=== PATIENT | female | born 1985 | race Caucasian/White ===

== ENCOUNTER 2022-08-01 09:28 | Outpatient (CLI) | payer BC, SELFPAY ==
--- NOTE | 2022-08-01 09:15 | CRLHL7_ITS ---
For Patients: As a result of the Century Cures Act, medical imaging exams and procedure reports are released immediately into your electronic medical record. You may view this report before your referring provider. If you have questions, please contact your health care provider. CLINICAL HISTORY: Lost IUD strings TECHNIQUE: 2D frye scale and color Doppler images were acquired of the pelvis using a transvaginal approach. FINDINGS: On transvaginal imaging, the myometrium has a normal uniform echotexture. Within the lower uterine segment there is a prominent cysts are in section scar with multiple simple and complex nabothian cysts. The IUD strings are associated with the scar tissue. IUD is in good position within the uterine fundal endometrium. The left ovary measures 2.0 x 1.6 x 2.1 cm in size and the right ovary measures 4.0 x 1.4 x 2.0 cm. The ovaries demonstrate normal arterial and venous blood flow on color Doppler analysis. There are no suspicious fluid collections within the cul-de-sac. IMPRESSION: IUD in good position within the endometrial canal. IUD strings associated with the scar tissue. Dictated by Stephen Nicole MD @ 08/01/2022 10:57:58 AM (Electronically Signed)
== END 2022-08-01 09:29 | disposition home or self-care (01) ==
LOC: US 09:29
PROVIDERS: PCP Internal Medicine; Visit Provider Physician Assistant
DX: T83.32XA Displacement of intrauterine contraceptive device, initial encounter (principal); Z97.5 Presence of (intrauterine) contraceptive device
CPT/HCPCS: 76830

== ENCOUNTER 2022-08-08 11:55 | Day surgery (SDC) | payer BC, SELFPAY ==
[2022-08-08 12:19] VITALS: BMI 28.1
[2022-08-08 12:19] LABS: Ur HCG Qualitative* Negative (Negative)
[2022-08-08 12:22] VITALS: BP 100/63; PULSE 88; RESP 20; TEMP 36.8; O2SAT 97
[2022-08-08 12:25] LABS: Hemoglobin* 15.5 gm/dL (12.0-16.0)
[2022-08-08] MEDS: LACTATED RINGERS 1000 ML 1,000 ML 100 ML IV (12:30)
[2022-08-08] MEDS: ETHYL CHLORIDE 1 APPLICATION 1 APPLIC TOPICAL (12:31)
--- NOTE | 2022-08-08 12:38 | W.PM.GYNPROC ---
Procedure Note Time Seen by Provider: 12:39 Date Seen: 08/08/22 Procedure Details: Preoperative diagnosis: 37-year-old with , retained IUD with lost strings. Unsuccessful attempt at in office hysteroscopic removal 2 days ago. Postoperative diagnosis: Same Procedure: Hysteroscopic IUD removal Anesthesia: Monitored anesthesia care with paracervical block Specimen removed: Intact IUD Findings: Exam under anesthesia: Cervix palpates normal. Uterus soft, mobile, anteverted without nodularity/masses. Adnexa were without fullness or nodularity. On hysteroscopy: IUD strings were curled up along the long arm of IUD and tucked into anterior lower uterine segment. Procedure in detail: Patient was taken to the operating room with IV running. She was positioned in dorsal lithotomy position with her legs fully supported in Yellofin stirrups. Monitored anesthesia care was administered. She was prepped and draped in the usual sterile fashion. Exam under anesthesia was performed for the above-noted findings. Speculum was inserted. Cervix visualized and grasped along the anterior lip with a single-tooth tenaculum. 4 cc of 0.5% Marcaine was used for paracervical block. Cervix was serially dilated to accommodate the TRUCLEAR hysteroscope - size 6 [place] Teresita dilator. This was assembled with saline inflow and outflow in place. The line was flushed of bubbles. The hysteroscope was advanced through the cervix into the endometrial cavity for the above noted findings. The tissue morcellator was then inserted through the operating channel. Window lock was performed. Under direct visualization, hysteroscopic grasper was used to grasp that IUD strings which were curled up along the long arm of the IUD and near the scar and gentle traction was used to remove the IUD in its entirety from the uterine cavity. IUD exam and post procedurely and noted to be completely intact. The hysteroscope and grasper were then removed from the uterus. Tenaculum was removed from the anterior lip of cervix. Hemostasis was achieved with silver nitrate at both tenaculum site. Patient tolerated procedure well. She was taken to recovery area in stable condition. EBL: 5 cc Urine output: 20 cc Fluid deficit: 10 cc
[2022-08-08] MEDS: BUPIVACAINE 0.5% 30 ML 4 ML INJECTION (13:10)
[2022-08-08] MEDS: SILVER NITRATE APPLICATOR 1 EACH STICK..EA. 2 EACH TOPICAL (13:11)
[2022-08-08 13:31] VITALS: BP 100/63; PULSE 86; RESP 20; TEMP 36.3; O2SAT 98
--- NOTE | 2022-08-08 13:31 | W.ANESCHARGE ---
Anesthesia Charges Start Date/Time Anesthesia Start Date: 08/08/22 Anesthesia Start Time: 12:45 Stop Date/Time Anesthesia Stop Date: 08/08/22 Anesthesia Stop Time: 13:22 Summary Emergency: No
[2022-08-08 13:40] VITALS: BP 105/75; PULSE 85; RESP 20; O2SAT 100
--- NOTE | 2022-08-08 13:56 | W.ANESCHARGE ---
Anesthesia Charges Start Date/Time Anesthesia Start Date: 08/08/22 Anesthesia Start Time: 12:45 Stop Date/Time Anesthesia Stop Date: 08/08/22 Anesthesia Stop Time: 13:22 Summary Emergency: No
[2022-08-08 13:57] VITALS: BP 97/70; PULSE 74; RESP 20; TEMP 36.4; O2SAT 100
[2022-08-08 14:22] VITALS: BP 97/71; PULSE 74; RESP 20; O2SAT 99
== END 2022-08-08 14:30 | disposition home or self-care (01) ==
PROVIDERS: PCP Internal Medicine; Visit Provider Obstetrics & Gynecology
PROC: 0UDB8ZZ Extraction of Endometrium, Via Natural or Artificial Opening Endoscopic (ICD-10-PCS; CPT 58558; principal; 2022-08-08 13:00)
DX: T83.32XA Displacement of intrauterine contraceptive device, initial encounter (principal)
CPT/HCPCS: 58579; 00952; 36415; 81025; 85018; 86850; 86900; 86901; A9270; J2250; J2704; J3010; J3490; J7120